=== PATIENT | female | born 2000 | race African-American/Black ===

== ENCOUNTER 2018-07-09 20:05 | Emergency (ER) | payer SELFPAY ==
[~2018-07-09] VITALS: Ht 160 cm; Wt 69.0 kg
[2018-07-09] MEDS ORDERED: LORAZEPAM 1MG TABLET PO ONE (21:15)
[2018-07-09 22:00] VITALS: BP 133/90
== END 2018-07-09 22:24 | disposition home or self-care (01) ==
LOC: ER 20:05
DX: F41.9 Anxiety disorder, unspecified (principal); F10.10 Alcohol abuse, uncomplicated; Y90.9 Presence of alcohol in blood, level not specified
CPT/HCPCS: 81025; 99284

== ENCOUNTER 2018-12-14 02:58 | Emergency (ER) | payer MEDICAID ==
[~2018-12-14] VITALS: Ht 165.1 cm; Wt 54.0 kg
[2018-12-14] MEDS ORDERED: IBUPROFEN 800MG TABLET PO ONE (04:15)
[2018-12-14 04:29] VITALS: BP 118/78
== END 2018-12-14 04:47 | disposition home or self-care (01) ==
LOC: ER 03:37
DX: K08.89 Other specified disorders of teeth and supporting structures (principal); F12.10 Cannabis abuse, uncomplicated
CPT/HCPCS: 99283

== ENCOUNTER 2023-06-28 17:33 | Emergency (ER) | payer MEDICAID ==
[~2023-06-28] VITALS: Ht 162.6 cm; Wt 81.6 kg
[2023-06-28 17:42] VITALS: BP 127/66; PULSE 88; RESP 16; TEMP 98.4; O2SAT 100
[2023-06-28 19:59] LABS: CLARITY URINE CLOUDY (CLEAR); COLOR URINE YELLOW (YELLOW); GLUCOSE URINE NEGATIVE (NEGATIVE); KETONES URINE NEGATIVE (NEGATIVE); LEUKOCYTE ESTERASE URINE 3+ (NEGATIVE); NITRITE URINE NEGATIVE (NEGATIVE); OCCULT BLOOD URINE NEGATIVE (NEGATIVE); PH URINE 7.5 (4.5-8.0); PROTEIN URINE NEGATIVE (NEGATIVE); SPECIFIC GRAVITY URINE 1.009 (1.005-1.030); UROBILINOGEN URINE 0.2 E.U./dL (0.2-1.0)
[2023-06-28 20:14] LABS: RBC URINE NONE SEEN /hpf (0-2)
[2023-06-28 20:15] LABS: BACTERIA URINE TRACE; SQUAMOUS EPITHELIAL CELL URINE FEW /lpf (RARE/1+)
== END 2023-06-28 21:32 | disposition left against medical advice (07) ==
LOC: ER 17:33
DX: R11.0 Nausea (principal); F12.90 Cannabis use, unspecified, uncomplicated
CPT/HCPCS: 81003; 87077; 99283